=== PATIENT | female | born 1980 | race Caucasian/White ===

== ENCOUNTER 2017-03-11 17:05 | Emergency (ER) | payer OTHER ==
[~2017-03-11] VITALS: Ht 175.3 cm; Wt 99.8 kg
[2017-03-11] MEDS ORDERED: SYMBICORT160 MCG/4. INH (17:30)
[2017-03-11] MEDS ORDERED: VENTOLIN HFA 1818 GM INH (17:31)
[2017-03-11] MEDS ORDERED: PREDNISONE 20 M20 MG PO (19:24)
[2017-03-11 19:32] VITALS: BP 112/69
== END 2017-03-11 19:35 | disposition home or self-care (01) ==
LOC: ER 17:05
DX: J45.901 Unspecified asthma with (acute) exacerbation (principal); F17.210 Nicotine dependence, cigarettes, uncomplicated; Z98.890 Other specified postprocedural states; Z88.0 Allergy status to penicillin

== ENCOUNTER 2020-07-19 08:17 | Emergency (ER) | payer OTHER ==
[~2020-07-19] VITALS: Ht 177.8 cm; Wt 104.3 kg
[~2020-07-19 08:17] MED LIST: PREDNISONE 20 M20 MG PO; SYMBICORT160 MCG/4. INH; VENTOLIN HFA 1818 GM INH
[2020-07-19] MEDS ORDERED: VISTARIL 25 MG25 M1 PO (08:37)
[2020-07-19] MEDS ORDERED: SERTRALINE HCL50 MG PO (08:37)
[2020-07-19] MEDS ORDERED: PRAZOSIN HCL1 MG PO (08:38)
[2020-07-19] MEDS ORDERED: ARIPIPRAZOLE5 MG PO (08:38)
[2020-07-19 09:07] LABS: ABSOLUTE NEUTROPHILS 3.9 thou/uL (1.4-8.2); BASOPHILS 0.5 % (0.0-2.0); EOSINOPHILS 2.9 % (0.0-3.0); HEMATOCRIT 41.9 % (37.0-47.0); HEMOGLOBIN 13.7 gm/dL (12.0-15.0); LYMPHOCYTES 32.9 % (24.0-44.0); MCH 29.7 pg (26.0-34.0); MCHC 32.8 g/dL (28.0-37.0); MCV 90.6 fL (80.0-100.0); PLATELET COUNT 266 thou/uL (150-400); POLYS 55.7 % (36.0-66.0); RBC 4.62 mil/uL (4.20-5.00); RDW 13.4 % (10.5-14.5)
[2020-07-19 09:13] LABS: ANION GAP 8 mmol/L (7-16); BUN 17 mg/dL (7-18); CALCIUM 9.2 mg/dL (8.5-10.1); CHLORIDE 103 mmol/L (98-107); CO2 27 mmol/L (21-32); CREATININE 1.2 mg/dL (0.6-1.0); GLUCOSE 91 mg/dL (74-106); POTASSIUM 3.8 mmol/L (3.5-5.1); SODIUM 138 mmol/L (136-145)
[2020-07-19 09:19] LABS: ALBUMIN 3.6 g/dL (3.4-5.0); APTT 27.2 Seconds (24.5-32.8); DIRECT BILIRUBIN < 0.1 mg/dL (<0.1-0.2); LIPASE 80 U/L (73-393); PROTIME 10.5 Seconds (9.3-11.4); SGOT 12 U/L (15-37); SGPT 23 U/L (14-59); TOTAL BILIRUBIN 0.3 mg/dL (0.2-1.0); TOTAL PROTEIN 6.9 g/dL (6.4-8.2)
[2020-07-19 10:27] LABS: URINE BILIRUBIN NEGATIVE (Negative); URINE BLOOD NEGATIVE (Negative); URINE CLARITY CLEAR; URINE COLOR YELLOW; URINE GLUCOSE-RANDOM* NEGATIVE (Negative); URINE KETONES NEGATIVE (Negative); URINE LEUKOCYTES-REFLEX TRACE (Negative); URINE NITRITE-REFLEX NEGATIVE (Negative); URINE PROTEIN (DIPSTICK) NEGATIVE (Negative); URINE SPECIFIC GRAVITY >= 1.030 (1.005-1.035); URINE UROBILINOGEN 0.2 E.U./dl (0.2-1.0)
[2020-07-19] MEDS ORDERED: BENTYL 10 MG CA10 MG PO (10:55)
[2020-07-19] MEDS ORDERED: ZOFRAN ODT4 MG PO (10:55)
[2020-07-19 11:06] VITALS: BP 97/70
== END 2020-07-19 11:06 | disposition home or self-care (01) ==
LOC: ER 08:17
PROVIDERS: Emergency Medicine
DX: R11.2 Nausea with vomiting, unspecified (principal); R10.13 Epigastric pain; J45.909 Unspecified asthma, uncomplicated; F17.210 Nicotine dependence, cigarettes, uncomplicated; Z90.89 Acquired absence of other organs; Z79.899 Other long term (current) drug therapy; Z88.0 Allergy status to penicillin

== ENCOUNTER 2020-10-07 07:49 | Emergency (ER) | payer OTHER ==
[~2020-10-07] VITALS: Ht 177.8 cm; Wt 112.0 kg
[~2020-10-07 07:49] MED LIST changes: +ARIPIPRAZOLE5 MG PO; +BENTYL 10 MG CA10 MG PO; +PRAZOSIN HCL1 MG PO; +SERTRALINE HCL50 MG PO; +VISTARIL 25 MG25 M1 PO; +ZOFRAN ODT4 MG PO
[2020-10-07 08:50] VITALS: BP 118/68
== END 2020-10-07 09:05 | disposition home or self-care (01) ==
LOC: ER 07:49
DX: G56.01 Carpal tunnel syndrome, right upper limb (principal); J45.909 Unspecified asthma, uncomplicated; Z90.89 Acquired absence of other organs; Z79.899 Other long term (current) drug therapy; Z88.0 Allergy status to penicillin